=== PATIENT | male | born 1980 | race Caucasian/White ===

== ENCOUNTER 2021-05-23 11:44 | Emergency (ER) | payer BC ==
[2021-05-23 12:45] LABS: HEMOGLOBIN 15.8 gm/dl (14.0-17.5); RED BLOOD COUNT 5.19 M/UL (4.20-5.50)
[2021-05-23 13:45] LABS: BUN/CREATININE RATIO 12 (0-10)
[2021-05-23] MEDS ORDERED: TORADOL 10 MG T10 MG PO (16:43)
== END 2021-05-23 17:15 | disposition home or self-care (01) ==
LOC: ER1 11:44
PROVIDERS: Physician Assistant
DX: N13.2 Hydronephrosis with renal and ureteral calculous obstruction (principal)
CPT/HCPCS: 80053; 81001; 83690; 85025; 96372; 99284; J1885